=== PATIENT | male | born 1945 | race Caucasian/White ===

== ENCOUNTER 2017-01-23 13:47 | Inpatient (IN) | payer MEDICARE, BC ==
[~2017-01-23] VITALS: Ht 175.3 cm; Wt 77.2 kg
[2017-01-24] MEDS ORDERED: CETI10 PO (10:01)
[2017-01-24] MEDS ORDERED: LISI40TA PO (10:01)
[2017-01-24] MEDS ORDERED: ISOS5TAB PO (10:01)
[2017-01-24] MEDS ORDERED: XARE20TA PO (10:01)
[2017-01-24] MEDS ORDERED: LANTINJ SQ (10:01)
[2017-01-24] MEDS ORDERED: ASPI1TAB69 PO (10:01)
[2017-01-24] MEDS ORDERED: ZOCO40TA PO (10:01)
[2017-01-24] MEDS ORDERED: TRAD5TAB PO (10:01)
[2017-01-24] MEDS ORDERED: METO25TA3 PO (10:15)
[2017-02-10] MEDS ORDERED: CHLORHEXIDINE GLUCONATE 4% SOLN 120 ML BTL TOPICAL SCH (06:15)
[2017-02-10] MEDS ORDERED: VANCOMYCIN 1000 MG/NS 250 ML (for <70 kg) IV SCH ×2 (06:15)
[2017-02-10] MEDS ORDERED: ceFAZolin 2 GM PREMIX 50 ML IV SCH (06:15)
[2017-02-10] MEDS ORDERED: METOPROLOL TARTRATE 25 MG TAB PO PRN (06:15)
[2017-02-10] MEDS ORDERED: LACTATED RINGER'S 1000 ML IV PRN (06:15)
[2017-02-10] MEDS ORDERED: SODIUM CHLORID 0.9% 500 ML IV PRN (06:15)
[2017-02-10] MEDS ORDERED: POVIDONE IODINE 7.5% SCRUB 118 ML BOTTLE TOPICAL SCH (06:15)
[2017-02-10] MEDS ORDERED: INSULIN HUMAN REGULAR 1,000 UNITS/10 ML VIAL SQ PRN (06:15)
[2017-02-10] MEDS ORDERED: DEXAMETHASONE SOD PHOS 20 MG/5 ML VIAL IV SCH (06:30)
[2017-02-10] MEDS ORDERED: GENTAMICIN SULFATE 80 MG/2 ML VIAL ONE (06:57)
[2017-02-10 07:11] VITALS: BP 110/60; PULSE 48; RESP 18; TEMP 97.7; O2SAT 97
[2017-02-10] MEDS ORDERED: diphenhydrAMINE HCL 50 MG/ML VIAL IV PRN (07:15)
[2017-02-10] MEDS ORDERED: BISACODYL 10 MG SUPP RECTAL PRN (07:15)
[2017-02-10] MEDS ORDERED: ZOLPIDEM TARTRATE 5 MG TAB PO PRN (07:15)
[2017-02-10] MEDS ORDERED: Post-op Orders (for Pharmacy) MISC XX ONE (07:15)
[2017-02-10] MEDS ORDERED: SODIUM CHLORIDE 0.9% FLUSH 5 ML FLUSH IVF PRN (07:15)
[2017-02-10] MEDS ORDERED: ALUMINUM/MAGNESIUM/SIMETH 30 ML CUP PO PRN (07:15)
[2017-02-10] MEDS ORDERED: HYDROmorphone HCL PF 2 MG/ML VIAL IV PRN (07:15)
[2017-02-10] MEDS ORDERED: NALOXONE HCL 0.4 MG/ML AMP IV PRN (07:15)
[2017-02-10] MEDS ORDERED: XARE10TA PO ×2 (07:17→08:46)
[2017-02-10] MEDS ORDERED: HYDR-3288 PO ×2 (07:19→08:47)
[2017-02-10] MEDS ORDERED: ACETAMINOPHEN 1000 MG/100 ML VIAL IV ONE (07:25)
[2017-02-10] MEDS ORDERED: fentaNYL CITRATE 250 MCG/5 ML AMP ONE (07:28)
[2017-02-10] MEDS ORDERED: MIDAZOLAM HCL 2 MG/2 ML VIAL ONE (07:28)
[2017-02-10] MEDS ORDERED: PILL SPLITTER OTHER PRN (07:45)
[2017-02-10] MEDS ORDERED: FAMOTIDINE 20 MG/2 ML VIAL ONE (08:03)
[2017-02-10] MEDS ORDERED: TRANEXAMIC ACID IV SCH (08:30)
[2017-02-10] MEDS ORDERED: ROPIVACAINE PERI-ARTICULAR INJECTION. P-ARTICULR SCH ×5 (08:30)
[2017-02-10] MEDS ORDERED: TRANEXAMIC PERI-ARTICULAR 3,000 MG/NS 100 ML P-ARTICULR SCH ×2 (08:30)
[2017-02-10] MEDS ORDERED: SODIUM CHLORIDE 0.9% IV SCH (08:30)
[2017-02-10] MEDS: LISINOPRIL 20 MG TAB PO SCH (09:00)
[2017-02-10] MEDS: ASPIRIN EC 81 MG TABEC PO SCH (09:00)
[2017-02-10] MEDS: CETIRIZINE HCL 10 MG TAB PO SCH (09:00)
[2017-02-10] MEDS: ISOSORBIDE DINITRATE 5 MG TAB PO SCH (09:00)
[2017-02-10] MEDS ORDERED: PROPOFOL 200 MG/20 ML AMP IV ONE (09:27)
[2017-02-10] MEDS ORDERED: NEOSTIGMINE 3 MG/3 ML SYR IV ONE (09:28)
[2017-02-10] MEDS ORDERED: ePHEDrine/NS 25 MG/5 ML SYR IV ONE (09:28)
[2017-02-10] MEDS ORDERED: ONDANSETRON HCL 4 MG/2 ML VIAL IV PUSH ONE (09:29)
[2017-02-10] MEDS ORDERED: DO NOT ADM ANY ANTICOAGULANT DRUGS PRN (10:51)
[2017-02-10] MEDS: SODIUM CHLOR 0.9% 1000 ML INJ 1,000 ML IV SCH ×2 (11:18→16:42)
[2017-02-10] MEDS ORDERED: *HYDROmorphone PF 1 MG VIAL PERIprocedural Use ONLY ONE (12:04)
--- NOTE | 2017-02-10 12:19 | RADRPT ---
EXAM DATE/TIME: 02/10/2017 12:02 [facility] COMPARISON: No previous studies available for comparison. INDICATIONS : Post op knee surgery. MEDICAL HISTORY : None. SURGICAL HISTORY : None. ENCOUNTER: Initial ACUITY: 1 day PAIN SCORE: Non-responsive. LOCATION: Left knee FINDINGS: Total knee arthroplasty is present. Hardware is intact. Alignment is anatomic. CONCLUSION: Satisfactory appearance post left TKA Rl Nolasco MD on February 10, 2017 at 12:17 Board Certified Radiologist. This report was verified electronically.
--- NOTE | 2017-02-10 13:08 | HHI.DCPOC ---
Discharge Care Plan Diagnosis: (1) Primary localized osteoarthrosis, lower leg Your Health Problems Are: Difficulty with ADL Goals to Promote Your Health * To prevent worsening of your condition and complications * To maintain your health at the optimal level Directions to Meet Your Goals Take your medications as prescribed Follow your dietary instruction Follow activity as directed Keep your appointments as scheduled Take your immunizations and boosters as scheduled If your symptoms worsen call your PCP, if no PCP go to Urgent Care Center or Emergency Room Smoking is Dangerous to Your Health. Avoid second hand smoke Call the 24-hour hour crisis hotline for domestic abuse at Roberto Carmichael Feb 10, 2017 13:08
[2017-02-10] MEDS ORDERED: CPMMACHINE (13:11)
[2017-02-10] MEDS ORDERED: WALKER WHEELS/F1 MIS (13:11)
[2017-02-10] MEDS ORDERED: COMMODE 3-IN-11 MIS (13:11)
--- NOTE | 2017-02-10 14:09 | PD.CONS ---
[facility] By Dr. Clarke Reason for Consult Medical management Primary Care Physician Mateusz Lopez MD Diagnoses: (1) Coronary artery disease (2) Diabetes mellitus (3) Hyperlipidemia (4) Hypertension (5) Primary localized osteoarthrosis, lower leg History of Present Illness The patient is a 71-year-old male seen in consultation for medical management following left total knee arthroplasty. Patient states that he is having pain in the left knee. No other complaints at this time. He reports history of coronary artery disease with prior CABG. He also has history of insulin- dependent diabetes and hypertension. Review of Systems Constitutional: DENIES: Fever, Chills, Night Sweats Eyes: DENIES: Blurred vision, Vision loss Ears, nose, mouth, throat: DENIES: Hearing loss Respiratory: DENIES: Cough, Wheezing, Sputum production, Shortness of breath Cardiovascular: DENIES: Chest pain, Palpitations, Dyspnea on Exertion, Lower Extremity Edema Gastrointestinal: DENIES: Abdominal pain, Constipation, Diarrhea, Nausea, Vomiting Genitourinary: DENIES: Urinary frequency, Urinary incontinence, Urgency, Hematuria, Dysuria, Nocturia Musculoskeletal: COMPLAINS OF: Joint pain, DENIES: Muscle aches Integumentary: DENIES: Pruritus, Rash Hematologic/lymphatic: DENIES: Bruising Neurologic: DENIES: Headache Past Family Social History Allergies: Coded Allergies: Morphine (Verified Allergy, Unknown, Nausea/Vomiting, 01/24/17) nervous, shaking, nausea/vomiting Past Medical History Osteoarthritis Diabetes mellitus, insulin-dependent Coronary artery disease Hypertension Hyperlipidemia Atrial fibrillation Past Surgical History CABG 3 vessels Bilateral rotator cuff surgery Left hand surgery Reported Medications See list Family History Cancer Liver disease Social History Quit smoking in 1984. Reports rare alcohol use. Denies illicit drug use. Physical Exam Vital Signs Vital Signs Date Time Temp Pulse Resp B/P Pulse Ox O2 Delivery O2 Flow Rate FiO2 02/10/17 12:36 Nasal Cannula 2.00 02/10/17 12:15 97.6 64 16 108/60 97 Nasal Cannula 2 02/10/17 12:00 65 15 110/62 96 Nasal Cannula 2 02/10/17 11:45 66 15 114/66 95 Nasal Cannula 2 02/10/17 11:30 69 14 116/67 97 Nasal Cannula 3 02/10/17 11:15 79 14 123/68 96 Nasal Cannula 3 02/10/17 11:00 81 14 128/69 98 Nasal Cannula 4 02/10/17 10:50 97.4 80 13 137/70 96 Nasal Cannula 4 02/10/17 07:11 97.7 48 18 110/60 97 Physical Exam GENERAL: Well-nourished, well-developed male in no acute distress. HEENT: Normocephalic, atraumatic. Pupils equal, round and reactive. Extraocular movements intact. No scleral icterus. No injection or drainage. Oropharynx is clear. Mucous membranes are moist. CARDIOVASCULAR: Regular rate and rhythm without murmurs, gallops, or rubs. RESPIRATORY: Clear to auscultation. No wheezes, rales, or rhonchi. Breathing is non-labored. GASTROINTESTINAL: Abdomen soft, non-tender, nondistended. EXTREMITIES: No lower extremity edema. No calf tenderness. SCDs. Left leg in CPM machine. PSYCH: Alert and oriented x 3. Laboratory Laboratory Tests Test 02/10/17 07:20 Blood Type A POSITIVE Antibody Screen NEGATIVE Blood Bank Comment Imaging Last Impressions Knee X-Ray 02/10/17712 Signed Impressions: Service Date/Time: Friday, February 10, 2017 12:02 - CONCLUSION: Satisfactory appearance post left TKA Rl Nolasco MD Assessment and Plan Assessment and Plan 1. Osteoarthritis, left knee: Status post left total knee arthroplasty, POD #0. Management per orthopedic surgery. Continue pain control, bowel regimen. 2. Coronary artery disease: Currently asymptomatic. Patient sees Dr. Benito for cardiology. Continue aspirin, lisinopril, metoprolol, Isordil, statin. 3. Atrial fibrillation: Resume Xarelto postoperatively. 4. Hypertension: Continue metoprolol, lisinopril. 5. Hyperlipidemia: Continue statin. 6. Diabetes mellitus, insulin-dependent: Monitor Accu-Cheks and cover with sliding scale insulin. Continue Levemir. 7. DVT prophylaxis: Xarelto. Dave Coffey MD Feb 10, 2017 14:09
[2017-02-10] MEDS: ACETAMINOPHEN/HYDROcodone 325 MG/7.5 MG TAB PO PRN (14:10)
[2017-02-10] MEDS ORDERED: GLUCAGON 1 MG/ML VIAL OTHER PRN (14:45)
[2017-02-10] MEDS ORDERED: DEXTROSE 50% IN WATER 50 ML VIAL(D50) IV PUSH PRN (14:45)
[2017-02-10 16:00] VITALS: BP 122/65; PULSE 60; RESP 16; TEMP 96.1; O2SAT 98
[2017-02-10] MEDS: INSULIN ASPART SUPPLEMENTAL SCALE SQ SCH ×2 (16:00→21:00)
[2017-02-10 16:08] VITALS: O2SAT 97
[2017-02-10] MEDS: ONDANSETRON HCL 4 MG/2 ML VIAL IVP PRN ×2 (17:37→22:39)
[2017-02-10 19:21] VITALS: BP 112/61; PULSE 63; RESP 18; TEMP 96.9; O2SAT 96
[2017-02-10] MEDS: METOPROLOL TARTRATE 25 MG TAB PO SCH (20:09)
[2017-02-10] MEDS: SODIUM CHLORIDE 0.9% FLUSH 5 ML FLUSH IVF SCH (20:10)
[2017-02-10] MEDS: PRAVASTATIN SOD 80 MG TAB PO SCH (20:12)
[2017-02-10] MEDS: INSULIN DETEMIR 100 UNITS/ML VIAL SQ SCH (21:13)
[2017-02-10] MEDS: RIVAROXABAN 10 MG TAB PO SCH (23:39)
[2017-02-11] VITALS (7 sets, daily range): BP systolic 97–158; BP diastolic 56–70; PULSE 60–86; RESP 17–19; TEMP 97.9–99.4; O2SAT 93–98
[2017-02-11] MEDS: SODIUM CHLOR 0.9% 1000 ML INJ 1,000 ML IV SCH ×3 (03:13→23:13)
[2017-02-11] MEDS: ONDANSETRON HCL 4 MG/2 ML VIAL IVP PRN ×3 (05:44→23:48)
[2017-02-11] MEDS: INSULIN ASPART SUPPLEMENTAL SCALE SQ SCH ×4 (06:18→19:38)
[2017-02-11 08:08] LABS: HEMATOCRIT 28.8 % (39.0-51.0); MEAN CELL VOLUME 85.7 FL (80.0-100.0); MEAN CORPUSCULAR HEMOGLOBIN 29.5 PG (27.0-34.0); MEAN CORPUSCULAR HGB CONC 34.5 % (32.0-36.0); PLATELET COUNT 77 TH/MM3 (150-450); RED BLOOD COUNT 3.36 MIL/MM3 (4.50-5.90); RED CELL DISTRIBUTION WIDTH 14.3 % (11.6-17.2); WHITE BLOOD COUNT 10.5 TH/MM3 (4.0-11.0)
[2017-02-11 08:10] LABS: REVIEW FLAG FINAL
[2017-02-11 08:24] LABS: BICARBONATE 25.1 MEQ/L (21.0-32.0)
[2017-02-11] MEDS: ISOSORBIDE DINITRATE 5 MG TAB PO SCH (08:55)
[2017-02-11] MEDS: CETIRIZINE HCL 10 MG TAB PO SCH (08:55)
[2017-02-11] MEDS: ASPIRIN EC 81 MG TABEC PO SCH (08:55)
[2017-02-11] MEDS: METOPROLOL TARTRATE 25 MG TAB PO SCH ×2 (08:56→19:39)
[2017-02-11] MEDS: ACETAMINOPHEN/HYDROcodone 325 MG/7.5 MG TAB PO PRN ×4 (08:56→21:46)
[2017-02-11] MEDS: LISINOPRIL 20 MG TAB PO SCH (08:56)
--- NOTE | 2017-02-11 08:57 | PD.ORT.PN ---
Subjective Post Op Day #: 1 Subjective Remarks pain under control Objective Vitals Vital Signs Date Time Temp Pulse Resp B/P Pulse Ox O2 Delivery O2 Flow Rate FiO2 02/11/17 08:00 98.2 62 18 117/61 97 02/11/17 04:05 97.9 64 18 113/65 98 02/11/17 00:05 97.9 65 19 121/64 97 02/10/17 19:21 96.9 63 18 112/61 96 02/10/17 16:08 97 Nasal Cannula 2.00 02/10/17 16:00 96.1 60 16 122/65 98 02/10/17 12:36 Nasal Cannula 2.00 02/10/17 12:15 97.6 64 16 108/60 97 Nasal Cannula 2 02/10/17 12:00 65 15 110/62 96 Nasal Cannula 2 02/10/17 11:45 66 15 114/66 95 Nasal Cannula 2 02/10/17 11:30 69 14 116/67 97 Nasal Cannula 3 02/10/17 11:15 79 14 123/68 96 Nasal Cannula 3 02/10/17 11:00 81 14 128/69 98 Nasal Cannula 4 02/10/17 10:50 97.4 80 13 137/70 96 Nasal Cannula 4 I/O 02/10/17 02/10/17 02/10/17 02/11/17 02/11/17 02/11/17 07:00 15:00 23:00 07:00 15:00 23:00 Intake Total 1532 ml 360 ml 120 ml Output Total 550 ml 200 ml 365 ml Balance 982 ml 160 ml -245 ml Intake Oral 360 ml 120 ml IV Total 232 ml Other 1300 ml Output Urine Total 450 ml 200 ml 365 ml Estimated Blood Loss 100 ml # Voids 0 # Bowel Movements 0 0 Result Diagram: 02/11/17 0708 02/11/17 0708 Objective Remarks in bed, nad dressing c/d/i neg homans nvi Assessment & Plan Ortho Post Op Day #: 1 Problem List: Assessment and Plan s/p L TKA wbat daily dressing changes xarelto 10mg rx in chart d/c planning to snf f/up dr. mills 2 weeks Roberto Carmichael Feb 11, 2017 08:57
[2017-02-11] MEDS: SODIUM CHLORIDE 0.9% FLUSH 5 ML FLUSH IVF SCH ×2 (08:58→19:39)
[2017-02-11] MEDS: PATIENT OWN MEDICATION (Linagliptin (Tradjenta) 5 MG) PO SCH (09:00)
--- NOTE | 2017-02-11 14:35 | HHI.PR ---
Subjective Remarks Follow up hypertension, diabetes. Patient states that he feels better today. He does still report pain in the left knee, but the pain is well-controlled with current medications. Objective Vitals Vital Signs Date Time Temp Pulse Resp B/P Pulse Ox O2 Delivery O2 Flow Rate FiO2 02/11/17 12:00 98.1 60 18 99/56 95 02/11/17 08:00 98.2 62 18 117/61 97 02/11/17 04:05 97.9 64 18 113/65 98 02/11/17 00:05 97.9 65 19 121/64 97 02/10/17 19:21 96.9 63 18 112/61 96 02/10/17 16:08 97 Nasal Cannula 2.00 02/10/17 16:00 96.1 60 16 122/65 98 I/O 02/10/17 02/10/17 02/10/17 02/11/17 02/11/17 02/11/17 07:00 15:00 23:00 07:00 15:00 23:00 Intake Total 1532 ml 360 ml 120 ml 545 ml Output Total 550 ml 200 ml 365 ml Balance 982 ml 160 ml -245 ml 545 ml Intake Oral 360 ml 120 ml IV Total 232 ml 545 ml Other 1300 ml Output Urine Total 450 ml 200 ml 365 ml Estimated Blood Loss 100 ml # Voids 0 # Bowel Movements 0 0 Result Diagram: 02/11/17 0708 02/11/17 0708 Imaging Last Impressions Knee X-Ray 02/10/17 0713 Signed Impressions: Service Date/Time: Friday, February 10, 2017 12:02 - CONCLUSION: Satisfactory appearance post left TKA Rl Nolasco MD Objective Remarks General: No acute distress. Sitting up in a chair. Heart: Regular rate and rhythm. No murmur. Lungs: Clear to auscultation bilaterally. No wheezes, rales, or rhonchi. Breathing is nonlabored. Abdomen: Soft, nontender, nondistended. Extremities: No lower extremity edema. Psych: Alert and oriented. Procedures 02/10/17 left total knee arthroplasty Urinary Catheter: No Vascular Central Line Catheter: No A/P Problem List: (1) Coronary artery disease ICD Code: I25.10 Status: Chronic (2) Diabetes mellitus ICD Code: E11.9 Status: Chronic (3) Hyperlipidemia ICD Code: E78.5 Status: Chronic (4) Hypertension ICD Code: I10 Status: Chronic (5) Primary localized osteoarthrosis, lower leg ICD Code: M17.10 Status: Chronic Assessment and Plan 1. Osteoarthritis, left knee: Status post left total knee arthroplasty, POD #1. Management per orthopedic surgery. Continue pain control, bowel regimen. 2. Coronary artery disease: Currently asymptomatic. Patient sees Dr. Benito for cardiology. Continue aspirin, lisinopril, metoprolol, Isordil, statin. 3. Atrial fibrillation: Xarelto. 4. Hypertension: Continue metoprolol, lisinopril. 5. Hyperlipidemia: Continue statin. 6. Diabetes mellitus, insulin-dependent: Monitor Accu-Cheks and cover with sliding scale insulin. Continue Levemir. 7. DVT prophylaxis: Xarelto. Discharge Planning Per orthopedic surgery. Likely discharge to SNF on 02/13/17. Dave Coffey MD Feb 11, 2017 14:35
--- NOTE | 2017-02-11 18:26 | MP ---
cc: REED CARBALLO DATE OF SURGERY 02/10/2017 PREOPERATIVE DIAGNOSIS Left knee osteoarthritis POSTOPERATIVE DIAGNOSES Left knee osteoarthritis. PROCEDURE Left total knee arthroplasty. SURGEON Dr. Reed Carballo SHOE POLISHER HORTENCIA Green ANESTHESIA General. ESTIMATED BLOOD LOSS 50 mL COMPLICATIONS Surgical complications none. JUSTIFICATION The patient is a 71-year-old male with a history of severe end-stage osteoarthritis involving the left knee. He has severe disabling pain with standing, walking, ambulation, weightbearing activities, even severe pain at rest. He has failed greater than 3 months of nonoperative conservative treatment with medication therapy, injections, ambulatory assistive aids, home exercise program, activity modification. X-ray of the left knee revealed severe end-stage osteoarthritis with joint space narrowing, subchondral sclerosis, subchondral cyst osteophyte formation and varus deformity. The patient was counseled as to the risks, benefits and alternatives to a total knee arthroplasty. The risks were discussed which include but not limited to injury, bleeding, infection, damage to nerves, blood vessels, pain, stiffness, , blood clots, pulmonary embolism and even . The patient's pain is severe. He appeared to understand the risks and did wish to proceed with surgery. PROCEDURE IN DETAILS A written consent obtained. The patient identified by name, taken to the operating room and placed supine on the operating table. General anesthesia was administered as well as 2 grams of IV Ancef and 1 gram of IV vancomycin. A well-padded tourniquet was placed on the left thigh. The left lower extremity prepped and draped using as isopropyl alcohol, Hibiclens solution and Chloraprep solution. An Esmarch bandage used was used to exsanguinate the left lower extremity. The tourniquet was inflated to 250 mmHg. A longitudinal incision was made over the anterior aspect of the left knee. A medial parapatellar arthrotomy incision was performed. The patella was everted. A patellar resection guide was used resect 9 mm of the patella. A size 38 mm guide was placed, three drills holes were placed and the 38 mm trial fit well. Attention was turned to the femur where an intramedullary guide gustavo was placed and the oscillating saw was used to resect 10 mm of distal femur, 5 degrees off the anatomic valgus axis alignment. Attention was turned to the tibia where extramedullary tibial guide was set to remove 5 mm of the lowest portion of the medial tibial plateau. The tibia guide was put in place and tibia cut was performed. A 5 mm spacer block showed full extension. Attention turned back to the femur. The AP sizing block measured to a size 7. The anterior reference of 3 degrees external rotation guide was used to pin a size [address]. The anterior and posterior chamfer cuts were performed. A size 7 PCL box cut pinned in place. The PCL was box cut with an oscillating saw. The medial and lateral meniscus remnants were removed as well as bone, soft tissue debrided from the posterior portion of the knee. A size 7 tibia baseplate was pinned in place. The tibia was drilled cemented in place with the size 7 femur, 7 tibia, 5-mm polyethylene tibial insert and 38 mm patella, the leg achieved full extension to 0 degrees and flexion to 140. No evidence of tibial lift-off. Varus-valgus balance appeared appropriate and symmetric and patella was noted to track centrally. Tourniquet was deflated. Bovie cautery used for hemostasis. The surgical wounds thoroughly irrigated with sterile saline pulse lavage antibiotic impregnated solution. The arthrotomy incision was closed with #1 Vicryl sutures, subcutaneous tissue with 2-0 Vicryl suture and skin was closed with Dermabond. Sterile dressing was applied. The patient tolerated the procedure well. Benjy Carmichael physician power plant assistant, certified was present during the entire procedure to include patient positioning and the procedure itself. The medical necessity of physician power plant assistant was indicated in this case due to the complexity of the procedure. He assisted with appropriate manipulation of the leg and also retraction of muscle, tendon, bone, neurovascular structures. He assisted with preparation of bone and also implantation of the prosthetic replacement. Please note the patient was given 3 grams of IV tranexamic acid by the anesthesiologist which was initially marked to be used as local infiltration per orders written. MD JONATHAN Mccarty/REGGIE /10:26 AM /5:51 PM
[2017-02-11] MEDS: DOCUSATE SODIUM 100 MG CAP PO SCH (19:38)
[2017-02-11] MEDS: MULTIVITAMINS/MINERALS THERAPEUTIC TAB PO SCH (19:38)
[2017-02-11] MEDS: PRAVASTATIN SOD 80 MG TAB PO SCH (19:38)
[2017-02-11] MEDS: INSULIN DETEMIR 100 UNITS/ML VIAL SQ SCH (19:38)
[2017-02-11] MEDS: RIVAROXABAN 10 MG TAB PO SCH (23:00)
[2017-02-12] MEDS ORDERED: METOCLOPRAMIDE HCL 10 MG/2 ML VIAL IM PRN (01:15)
[2017-02-12] MEDS: ACETAMINOPHEN/HYDROcodone 325 MG/7.5 MG TAB PO PRN ×3 (04:05→14:59)
[2017-02-12] MEDS: INSULIN ASPART SUPPLEMENTAL SCALE SQ SCH ×4 (06:47→21:00)
[2017-02-12 07:55] VITALS: BP 123/69; PULSE 74; RESP 18; TEMP 98.6; O2SAT 92
--- NOTE | 2017-02-12 08:02 | PD.ORT.PN ---
Subjective Post Op Day #: 2 Subjective Remarks pain under control Objective Vitals Vital Signs Date Time Temp Pulse Resp B/P Pulse Ox O2 Delivery O2 Flow Rate FiO2 02/12/17 07:55 98.6 74 18 123/69 92 02/11/17 23:11 99.4 86 17 158/70 94 02/11/17 20:08 99.4 64 19 138/69 93 02/11/17 16:00 98.0 60 18 97/56 94 02/11/17 12:00 98.1 60 18 99/56 95 I/O 02/11/17 02/11/17 02/11/17 02/12/17 02/12/17 02/12/17 07:00 15:00 23:00 07:00 15:00 23:00 Intake Total 120 ml 1145 ml 240 ml 360 ml Output Total 365 ml 600 ml 250 ml 1175 ml Balance -245 ml 545 ml -10 ml -815 ml Intake Oral 120 ml 600 ml 240 ml 360 ml IV Total 545 ml Output Urine Total 365 ml 600 ml 250 ml 1175 ml # Bowel Movements 0 0 0 0 Result Diagram: 02/11/17 0708 02/11/17 0708 Objective Remarks in bed, nad dressing c/d/i demonstrates straight leg raise with ease neg homans nvi Assessment & Plan Ortho Post Op Day #: 2 Problem List: Assessment and Plan s/p L TKA wbat daily dressing changes xarelto 10mg, no ASA yet hx of thrombocytopenia rx in chart d/c planning to snf f/up dr. mills 2 weeks Roberto Carmichael Feb 12, 2017 08:02
[2017-02-12 08:13] LABS: HEMATOCRIT 29.4 % (39.0-51.0); MEAN CELL VOLUME 87.5 FL (80.0-100.0); MEAN CORPUSCULAR HGB CONC 33.2 % (32.0-36.0); PLATELET COUNT 67 TH/MM3 (150-450); RED BLOOD COUNT 3.36 MIL/MM3 (4.50-5.90); RED CELL DISTRIBUTION WIDTH 14.5 % (11.6-17.2); WHITE BLOOD COUNT 10.7 TH/MM3 (4.0-11.0)
[2017-02-12 08:18] LABS: REVIEW FLAG FINAL
--- NOTE | 2017-02-12 08:31 | HHI.PR ---
Subjective Remarks Follow up hypertension, diabetes. The patient had significant nausea overnight, but that has improved. Pain control is adequate currently. No chest pain or shortness of breath. Objective Vitals Vital Signs Date Time Temp Pulse Resp B/P Pulse Ox O2 Delivery O2 Flow Rate FiO2 02/12/17 07:55 98.6 74 18 123/69 92 02/11/17 23:11 99.4 86 17 158/70 94 02/11/17 20:08 99.4 64 19 138/69 93 02/11/17 16:00 98.0 60 18 97/56 94 02/11/17 12:00 98.1 60 18 99/56 95 I/O 02/11/17 02/11/17 02/11/17 02/12/17 02/12/17 02/12/17 07:00 15:00 23:00 07:00 15:00 23:00 Intake Total 120 ml 1145 ml 240 ml 360 ml Output Total 365 ml 600 ml 250 ml 1175 ml Balance -245 ml 545 ml -10 ml -815 ml Intake Oral 120 ml 600 ml 240 ml 360 ml IV Total 545 ml Output Urine Total 365 ml 600 ml 250 ml 1175 ml # Bowel Movements 0 0 0 0 Result Diagram: 02/12/1708 02/11/17707 Imaging Last Impressions Knee X-Ray 02/10/17712 Signed Impressions: Service Date/Time: Friday, February 10, 2017 12:02 - CONCLUSION: Satisfactory appearance post left TKA Rl Nolasco MD Objective Remarks General: No acute distress. Heart: Regular rate and rhythm. No murmur. Lungs: Clear to auscultation bilaterally. No wheezes, rales, or rhonchi. Breathing is nonlabored. Abdomen: Soft, nontender, nondistended. Extremities: No lower extremity edema. Psych: Alert and oriented. Procedures 02/10/17 left total knee arthroplasty Urinary Catheter: No Vascular Central Line Catheter: No A/P Problem List: (1) Coronary artery disease ICD Code: I25.10 Status: Chronic (2) Diabetes mellitus ICD Code: E11.9 Status: Chronic (3) Hyperlipidemia ICD Code: E78.5 Status: Chronic (4) Hypertension ICD Code: I10 Status: Chronic (5) Primary localized osteoarthrosis, lower leg ICD Code: M17.10 Status: Chronic Assessment and Plan 1. Osteoarthritis, left knee: Status post left total knee arthroplasty, POD #2. Management per orthopedic surgery. Continue pain control, bowel regimen. 2. Coronary artery disease: Currently asymptomatic. Patient sees Dr. Benito for cardiology. Continue aspirin, lisinopril, metoprolol, Isordil, statin. 3. Atrial fibrillation: Xarelto. 4. Hypertension: Continue metoprolol, lisinopril. 5. Hyperlipidemia: Continue statin. 6. Diabetes mellitus, insulin-dependent: Monitor Accu-Cheks and cover with sliding scale insulin. Continue Levemir. 7. DVT prophylaxis: Xarelto. Discharge Planning Per orthopedic surgery. Likely discharge to SNF on 02/13/17. Dave Coffey MD Feb 12, 2017 08:31
[2017-02-12] MEDS: LISINOPRIL 20 MG TAB PO SCH (08:32)
[2017-02-12] MEDS: MULTIVITAMINS/MINERALS THERAPEUTIC TAB PO SCH ×2 (08:32→21:38)
[2017-02-12] MEDS: ISOSORBIDE DINITRATE 5 MG TAB PO SCH (08:33)
[2017-02-12] MEDS: CETIRIZINE HCL 10 MG TAB PO SCH (08:33)
[2017-02-12] MEDS: DOCUSATE SODIUM 100 MG CAP PO SCH ×2 (08:33→21:37)
[2017-02-12] MEDS: METOPROLOL TARTRATE 25 MG TAB PO SCH ×2 (08:33→21:38)
[2017-02-12 08:34] LABS: BICARBONATE 26.3 MEQ/L (21.0-32.0); POTASSIUM 4.3 MEQ/L (3.5-5.1)
[2017-02-12] MEDS: PATIENT OWN MEDICATION (Linagliptin (Tradjenta) 5 MG) PO SCH (09:00)
[2017-02-12] MEDS: SODIUM CHLORIDE 0.9% FLUSH 5 ML FLUSH IVF SCH ×2 (09:00→21:00)
[2017-02-12] MEDS: SODIUM CHLOR 0.9% 1000 ML INJ 1,000 ML IV SCH ×2 (09:13→19:13)
[2017-02-12 12:00] VITALS: BP 120/68; PULSE 65; RESP 18; TEMP 98.3; O2SAT 94
[2017-02-12] MEDS: ONDANSETRON HCL 4 MG/2 ML VIAL IVP PRN (14:59)
[2017-02-12 16:00] VITALS: BP 151/77; PULSE 78; RESP 18; TEMP 99; O2SAT 93
[2017-02-12 19:46] VITALS: BP 157/75; PULSE 87; RESP 15; TEMP 99.9
[2017-02-12] MEDS: RIVAROXABAN 10 MG TAB PO SCH (21:37)
[2017-02-12] MEDS: INSULIN DETEMIR 100 UNITS/ML VIAL SQ SCH (21:38)
[2017-02-12] MEDS: PRAVASTATIN SOD 80 MG TAB PO SCH (21:42)
[2017-02-13 00:15] VITALS: BP 131/66; PULSE 72; RESP 16; TEMP 99.7; O2SAT 96
[2017-02-13 03:55] VITALS: BP 152/78
[2017-02-13] MEDS: SODIUM CHLOR 0.9% 1000 ML INJ 1,000 ML IV SCH (05:13)
[2017-02-13] MEDS: INSULIN ASPART SUPPLEMENTAL SCALE SQ SCH ×2 (06:16→11:53)
[2017-02-13 07:24] LABS: HEMATOCRIT 31.9 % (39.0-51.0); MEAN CELL VOLUME 86.3 FL (80.0-100.0); MEAN CORPUSCULAR HEMOGLOBIN 28.9 PG (27.0-34.0); MEAN CORPUSCULAR HGB CONC 33.4 % (32.0-36.0); PLATELET COUNT 70 TH/MM3 (150-450); RED CELL DISTRIBUTION WIDTH 14.1 % (11.6-17.2); WHITE BLOOD COUNT 8.8 TH/MM3 (4.0-11.0)
[2017-02-13 07:28] LABS: REVIEW FLAG FINAL
--- NOTE | 2017-02-13 07:55 | PD.ORT.PN ---
Subjective Post Op Day #: 3 Subjective Remarks pain under control, nausea better. denies cp and sob. Objective Vitals Vital Signs Date Time Temp Pulse Resp B/P Pulse Ox O2 Delivery O2 Flow Rate FiO2 02/13/17 03:55 152/78 02/13/17 00:15 99.7 72 16 131/66 96 02/12/17 19:46 99.9 87 15 157/75 02/12/17 18:32 Room Air 02/12/17 16:00 99.0 78 18 151/77 93 02/12/17 15:59 2 02/12/17 12:00 98.3 65 18 120/68 94 02/12/17 07:55 98.6 74 18 123/69 92 I/O 02/12/17 02/12/17 02/12/17 02/13/17 02/13/17 02/13/17 07:00 15:00 23:00 07:00 15:00 23:00 Intake Total 360 ml 600 ml 240 ml 480 ml Output Total 1175 ml 660 ml 1000 ml Balance -815 ml 600 ml -420 ml -520 ml Intake Oral 360 ml 600 ml 240 ml 480 ml Output Urine Total 1175 ml 660 ml 1000 ml # Voids 5 # Bowel Movements 0 0 0 0 Result Diagram: 02/12/17 0708 02/12/17 0708 Objective Remarks in bed, nad incision no erythema, no drainage demonstrates straight leg raise with ease neg homans nvi Assessment & Plan Ortho Post Op Day #: 3 Problem List: Assessment and Plan s/p L TKA wbat daily dressing changes xarelto 10mg, no ASA yet hx of thrombocytopenia rx in chart d/c planning to snf - cleared for d/c today f/up dr. mills 2 weeks Roberto Carmichael Feb 13, 2017 07:55
[2017-02-13 08:00] VITALS: BP 184/84; PULSE 88; RESP 19; TEMP 100; O2SAT 94
[2017-02-13] MEDS: ISOSORBIDE DINITRATE 5 MG TAB PO SCH (08:59)
[2017-02-13] MEDS: METOPROLOL TARTRATE 25 MG TAB PO SCH (09:00)
[2017-02-13] MEDS: MULTIVITAMINS/MINERALS THERAPEUTIC TAB PO SCH (09:00)
[2017-02-13] MEDS: PATIENT OWN MEDICATION (Linagliptin (Tradjenta) 5 MG) PO SCH (09:00)
[2017-02-13] MEDS: DOCUSATE SODIUM 100 MG CAP PO SCH (09:00)
[2017-02-13] MEDS: LISINOPRIL 20 MG TAB PO SCH (09:00)
[2017-02-13] MEDS: SODIUM CHLORIDE 0.9% FLUSH 5 ML FLUSH IVF SCH (09:00)
[2017-02-13] MEDS: CETIRIZINE HCL 10 MG TAB PO SCH (09:00)
[2017-02-13] MEDS: ONDANSETRON HCL 4 MG/2 ML VIAL IVP PRN (09:01)
[2017-02-13] MEDS ORDERED: MAGNESIUM HYDROXIDE SUSP 30 ML CUP PO PRN (10:00)
[2017-02-13 12:00] VITALS: BP 143/83; PULSE 73; RESP 18; TEMP 99.7; O2SAT 95
[2017-02-13] MEDS: ACETAMINOPHEN/HYDROcodone 325 MG/7.5 MG TAB PO PRN (15:57)
--- NOTE | 2017-02-17 08:31 | MD ---
cc: REED CLARKE ADMISSION DATE: 02/10/2017 DISCHARGE DATE: 02/13/2017 ADMISSION DIAGNOSIS Severe degenerative osteoarthritis left knee DISCHARGE DIAGNOSIS Severe degenerative osteoarthritis left knee HISTORY OF PRESENT ILLNESS Mr. Salguero is a 71-year-old male who presented to [facility] for evaluation by Dr. Reed Clarke regarding his severe and progressive left knee pain. The patient states the pain has been bothering him for many years and is currently inhibiting his activities of daily living. He says it is a constant aching sensation in the left knee, exacerbated by any type of weightbearing activities. He notes he has no alleviating factors, at this point in time, although in the past he has tried medications, bracing, physical therapy, home exercise program, multiple corticosteroid injections without relief of symptoms. He does have x-ray evidence of severe degenerative osteoarthritis of the left knee. While in the office the patient was counseled on diagnosis and treatment options, risks, benefits, indications of all were discussed. The patient did elect to proceed with surgical intervention to include a left total knee arthroplasty. Date of surgery: 02/10/2017, left total knee arthroplasty. Postop: After surgery the patient admitted to [facility] where he received appropriate medical management, pain control, DVT prophylaxis as well as physical therapy. Discharge: Once being discharged from the hospital, the patient is cleared to go to a group home facility. Condition: He is in stable condition. He may weightbear as tolerated. The patient is to receive daily dressing changes and has been instructed on appropriate wound care management. He has been provided prescriptions for pain control as well as DVT prophylaxis medication. He has also been provided a follow up appointment to see Dr. Reed Clarke in the office approximately two weeks from date of surgery. The patient has asked appropriate questions which have been answered. The patient is cleared for discharge. Dictated by: HORTENCIA Cornejo MD JONATHAN Mccarty/CHRISTINE /7:59 AM /8:31 AM
== END 2017-02-13 16:59 | DRG 470 ==
LOC: HSDI 02-10 05:36 → N06B 02-10 12:34
PROVIDERS: ADMIT Orthopaedic Surgery Sports Medicine; ATTEND Orthopaedic Surgery Sports Medicine
PROC: 0SRD0J9 Replacement of Left Knee Joint with Synthetic Substitute, Cemented, Open Approach (ICD-10-PCS; principal; 2017-02-10 08:11)
DX: M17.12 Unilateral primary osteoarthritis, left knee (principal); E11.9 Type 2 diabetes mellitus without complications; I48.91 Unspecified atrial fibrillation; I10 Essential (primary) hypertension; I25.10 Atherosclerotic heart disease of native coronary artery without angina pectoris; Z79.4 Long term (current) use of insulin; E78.5 Hyperlipidemia, unspecified; Z95.1 Presence of aortocoronary bypass graft; Z87.891 Personal history of nicotine dependence; Z79.02 Long term (current) use of antithrombotics/antiplatelets
CPT/HCPCS: 73560; 80048; 82948; 85027; 86850; 86900; 86901; 94150; C1776; J0131; J0171; J0690; J0735; J1100; J1170; J1580; J1815; J1885; J2250; J2405; J2710; J2765; J2795; J3010; J3370; J7030; J7050; J7120; L1830

== ENCOUNTER → 2017-01-24 | Outpatient (CLI) | payer MEDICARE, BC ==
[~2017-01-24] MED LIST: ASPI1TAB69 PO; ASPI81 PO; CETI10 OR; CETI10 PO; CLOP75 PO; COMMODE 3-IN-11 MIS; CPMMACHINE; FLUN25I; HYDR-3288 PO; HYDR50TA15 PO; ISOS10TA PO; ISOS5TAB PO; LANTINJ SQ; LANTUSP SQ; LISI40TA PO; METO25 PO; METO25TA3 PO; PREG100 PO; TRAD5TAB PO; WALKER WHEELS/F1 MIS; XARE10TA PO; XARE20TA PO; ZOCO40TA PO; ZOCO80TA PO; tragenta PO
[2017-01-24 10:00] LABS: AUTOMATED NEUTROPHIL # 4.7 TH/MM3 (1.8-7.7); BASOPHIL % 0.3 % (0.0-2.0); EOSINOPHIL # 0.1 TH/MM3 (0-0.4); EOSINOPHIL % 0.8 % (0.0-4.0); HEMATOCRIT 39.2 % (39.0-51.0); LYMPH % 18.4 % (9.0-44.0); LYMPHOCYTE # 1.1 TH/MM3 (1.0-4.8); MEAN CELL VOLUME 86.3 FL (80.0-100.0); MEAN CORPUSCULAR HEMOGLOBIN 28.9 PG (27.0-34.0); MEAN CORPUSCULAR HGB CONC 33.5 % (32.0-36.0); NEUT % 74.5 % (16.0-70.0); PLATELET COUNT 92 TH/MM3 (150-450); RED BLOOD COUNT 4.55 MIL/MM3 (4.50-5.90); RED CELL DISTRIBUTION WIDTH 14.4 % (11.6-17.2); WHITE BLOOD COUNT 6.3 TH/MM3 (4.0-11.0)
[2017-01-24 10:04] LABS: HEMO FLAGS AUTO DIFF
[2017-01-24 10:08] LABS: APTT (PATIENT) 28.7 SEC (24.3-30.1); INTERNATIONAL NORMALIZED RATIO 1.1 RATIO; PROTHROMBIN TIME - PATIENT 11.9 SEC (9.8-11.6)
[2017-01-24 10:24] LABS: WESTERGREN SEDIMENTATION RATE 9 mm/hr (0-20)
[2017-01-24 10:30] LABS: ALT (GPT) 23 U/L (12-78); ANION GAP 4 MEQ/L (5-15); AST (GOT) 17 U/L (15-37); BICARBONATE 30.1 MEQ/L (21.0-32.0); BLOOD UREA NITROGEN 21 MG/DL (7-18); CHLORIDE 107 MEQ/L (98-107); GLOMERULAR FILTRATION RATE 56 ML/MIN (>89); GLUCOSE,FASTING 168 MG/DL (74-99); PLATELET ESTIMATE SMEAR LOW (NORMAL); PLATELET MORPHOLOGY NORMAL (NORMAL); POTASSIUM 4.4 MEQ/L (3.5-5.1); SCAN/DIFF AUTO DIFF CONFIRMED; SODIUM (NA) 141 MEQ/L (136-145)
[2017-01-24 10:32] LABS: ALKALINE PHOSPHATASE 57 U/L (45-117); TOTAL BILIRUBIN ADULT 0.6 MG/DL (0.2-1.0)
[2017-01-24 11:29] LABS: BLOOD, URINE NEG (NEG); GLUCOSE,URINE NEG (NEG); KETONE, URINE NEG (NEG); NITRITE,URINE NEG (NEG); URINE COLOR YELLOW (YELLW/STRAW)
[2017-01-24 11:31] LABS: COMMENT (UR) CULT NOT INDICATED; CULTURE IF INDICATED CULT NOT INDICATED
--- NOTE | 2017-01-24 11:35 | RADRPT ---
EXAM DATE/TIME: 01/24/2017 00:00 [facility] COMPARISON: FLUOROSCOPY FOR INTERVENTIONAL PAIN, SPINAL UP TO 1 HR, August 11, 2014, 0:00. INDICATIONS : Evaluate for pneumonia, pneumothorax, or communicable disease. Pre op for knee surgery. MEDICAL HISTORY : Arthritis. Hypertension Hypercholesterolemia. CAD. Diabetic. SURGICAL HISTORY : CABG. Appendectomy. Cervical & lumbar fusion. Right shoulder stimulator ENCOUNTER: Initial ACUITY: 1 day PAIN SCORE: 0/10 LOCATION: chest FINDINGS: The heart is normal in size. The mediastinal contours are within normal limits. The lungs are clear. The visualized bony structures are grossly intact. Patient is post median sternotomy. CONCLUSION: No acute cardiopulmonary findings. Remi Kendrick MD on January 24, 2017 at 11:33 Board Certified Radiologist. This report was verified electronically.
--- NOTE | 2017-01-25 16:30 | EKG ---
Date Performed: 01/24/2017 Time Performed: 09:49:32 PTAGE: 71 years EKG: SINUS BRADYCARDIA WITH SINUS ARRHYTHMIA MARKED LEFT AXIS DEVIATION MODERATE INTRAVENTRICULA R CONDUCTION DELAY Since previous tracing, no significant change noted ABNORMAL ECG PREVIOUS TRACING : 11/11/2011 13.55.18 DOCTOR: Shiv Carrera Interpretating Date/Time 01/25/2017 16:29:04
== END ==
LOC: CPRE 09:23
PROVIDERS: ATTEND Orthopaedic Surgery Sports Medicine
DX: Z01.810 Encounter for preprocedural cardiovascular examination (principal); Z01.812 Encounter for preprocedural laboratory examination; M17.12 Unilateral primary osteoarthritis, left knee; Z79.01 Long term (current) use of anticoagulants; M25.50 Pain in unspecified joint; R00.1 Bradycardia, unspecified
CPT/HCPCS: 36415; 71020; 80053; 81001; 85025; 85610; 85652; 85730; 93005